=== PATIENT | male | born 1990 | race African-American/Black ===

== ENCOUNTER 2023-07-28 19:51 | Emergency (ER) | payer MEDICAID ==
[~2023-07-28] VITALS: Ht 165.1 cm; Wt 56.4 kg
[2023-07-28 20:03] VITALS: BP 154/85; PULSE 72; RESP 18; O2SAT 97
== END 2023-07-28 21:47 | disposition left against medical advice (07) ==
LOC: ER 19:51
DX: I10 Essential (primary) hypertension (principal); Z53.21 Procedure and treatment not carried out due to patient leaving prior to being seen by health care provider

== ENCOUNTER 2023-08-25 13:31 | Emergency (ER) | payer MEDICAID ==
[~2023-08-25] VITALS: Ht 165.1 cm; Wt 53.8 kg
[2023-08-25] MEDS: ACETAMINOPHEN 500 MG TAB PO ONE (15:25)
[2023-08-25 16:12] VITALS: PULSE 72; RESP 16; O2SAT 100
[2023-08-25] MEDS: HYDROcodone-ACET 10/325MG TAB PO ONE (16:24)
[2023-08-25 18:46] VITALS: BP 163/108; PULSE 83; RESP 18; TEMP 98.9; O2SAT 98
== END 2023-08-25 19:29 | disposition short-term general hospital (02) ==
LOC: ER 13:31
DX: S02.32XA Fracture of orbital floor, left side, initial encounter for closed fracture (principal); Y04.2XXA Assault by strike against or bumped into by another person, initial encounter; Y93.89 Activity, other specified; Y92.89 Other specified places as the place of occurrence of the external cause; Y99.8 Other external cause status
CPT/HCPCS: 70480; 70486